=== PATIENT | female | born 1975 | race Caucasian/White ===

== ENCOUNTER 2017-07-11 06:02 | Day surgery (SDC) | payer OTHER ==
[~2017-07-11] VITALS: Ht 170.2 cm; Wt 113.4 kg
[2017-07-11] MEDS ORDERED: METF1000 PO (08:08)
[2017-07-11] MEDS ORDERED: IRON65TA11 PO (08:08)
[2017-07-11] MEDS ORDERED: ONDANSETRON 4 MG/2 ML VIAL ONE (09:01)
[2017-07-11] MEDS ORDERED: PROPOFOL 200 MG/20 ML VIAL IV ONE (09:01)
[2017-07-11] MEDS ORDERED: SEVOFLURANE 250 ML BTL INH ONE (09:01)
[2017-07-11] MEDS ORDERED: DEXAMETHASONE 4 MG/ML VIAL ONE (09:01)
[2017-07-11] MEDS ORDERED: IBUPROFEN 800 MG TAB PO PRN (09:05)
[2017-07-11] MEDS ORDERED: ONDANSETRON 4 MG/2 ML VIAL IVP PRN ×2 (09:05→09:20)
[2017-07-11] MEDS ORDERED: ACETAMINOPHEN/CODEINE 300/30MG 1 TAB PO PRN (09:05)
[2017-07-11] MEDS ORDERED: MORPHINE SULFATE 4 MG/ML SYR IM/IVP PRN (09:05)
[2017-07-11] MEDS ORDERED: fentaNYL 0.05 MG/ML VIAL ONE (09:11)
[2017-07-11] MEDS ORDERED: MIDAZOLAM 2 MG/2 ML VIAL ONE (09:11)
[2017-07-11] MEDS ORDERED: MEPERIDINE 25 MG/ML SYR ONE (09:11)
[2017-07-11] MEDS ORDERED: NACL 0.9% 1,000 ML IV SCH (09:17)
[2017-07-11] MEDS ORDERED: MEPERIDINE 25 MG/ML SYR IVP PRN (09:20)
[2017-07-11] MEDS ORDERED: HYDROmorphone 1 MG/ML AMP IVP PRN (09:20)
[2017-07-11] MEDS ORDERED: diphenhydrAMINE 50 MG/ML VIAL IVP PRN (09:20)
== END 2017-07-11 11:44 | disposition home or self-care (01) ==
LOC: MDS 06:02 → MMU 06:03 → MDS 11:44
PROVIDERS: ATTEND Obstetrics & Gynecology
DX: N92.1 Excessive and frequent menstruation with irregular cycle (principal); E66.9 Obesity, unspecified; E11.9 Type 2 diabetes mellitus without complications; Z68.35 Body mass index [BMI] 35.0-35.9, adult; Z98.51 Tubal ligation status; Z90.49 Acquired absence of other specified parts of digestive tract; Z98.890 Other specified postprocedural states; Z79.84 Long term (current) use of oral hypoglycemic drugs
CPT/HCPCS: 58120; J2175; J2250; J3010; J7030; J1100; J2405; J2704; J7120